=== PATIENT | female | born 1990 | race Native Hawaiian/Other Pacific Islander ===

== ENCOUNTER 2019-01-30 18:48 | Emergency (ER) | payer OTHER ==
--- NOTE | 2019-01-30 19:32 | ED ---
Complex/Multi-Sys Presentation - HPI Summary HPI Summary: A 28 y/o female presents to [facility] with a chief complaint of having a patient cough up bloody sputum at her face when giving the patient a CXR today. She notes that the spit was not in her eye and was more just generally in her face. There is no eye erythema noted. She says that the person has a Hx of MRSA. At triage the patient rated her pain as a 0/10 in severity. - History Of Current Complaint Chief Complaint: EDExposureBodyFluid Time Seen by Provider: 01/30/19 19:19 Hx Obtained From: Patient Onset/Duration: Sudden Onset, Resolved Timing: Intermittent, Lasting:, Seconds Severity Currently: Mild Severity Initially: Mild Location: Negative Character: Unable To Describe Aggravating Factor(s): nothing Alleviating Factor(s): nothing Associated Signs And Symptoms: Positive: Other - bloody sputum was coughed up from someone with a Hx of MRSA onto the patient's face. Negative: Fever - Allergies/Home Medications Allergies/Adverse Reactions: Allergies Allergy/AdvReac Type Severity Reaction Status Date / Time No Known Allergies Allergy Verified 01/30/19 18:56 Home Medications: Home Medications Etonogest/Eth.estradiol (Nf) [Nuvaring Vaginal Ring] 1 each INTRAUTERI MONTHLY 01/30/19 [History Confirmed 01/30/19] PMH/Surg Hx/FS Hx/Imm Hx Respiratory History: Reports: Hx Asthma - Sports induced Sensory History: Denies: Hx Deafness EENT History: Denies: Hx Deafness Infectious Disease History: No Infectious Disease History: Denies: Traveled Outside the [place] in Last 30 Days - Family History Known Family History: Negative: Blood Disorder - Social History Alcohol Use: None Substance Use Type: Reports: None Smoking Status (MU): Never Smoked Tobacco Have You Smoked in the Last Year: No Review of Systems Negative: Fever Negative: Erythema All Other Systems Reviewed And Are Negative: Yes Physical Exam - Summary Physical Exam Summary: Constitutional: Well-developed, Well-nourished, Alert. (-) Distressed Skin: Warm, Dry HENT: Normocephalic; Atraumatic Eyes: Symmetric, clean, no discharge, no conjunctival injection, no erythema, no pain when moving eye left to right Neck: Musculoskeletal ROM normal neck. (-) JVD, (-) Stridor, (-) Tracheal deviation Cardio: Rhythm regular, rate normal, Heart sounds normal; Intact distal pulses; The pedal pulses are 2+ and symmetric. Radial pulses are 2+ and symmetric. Pulmonary/Chest wall: Effort normal. (-) Respiratory distress, (-) Wheezes, (-) Rales Abd: Soft, (-) tenderness, (-) Distension, (-) Guarding, (-) Rebound Musculoskeletal: (-) Edema Neuro: Alert, Oriented x3 Psych: Mood and affect Normal Triage Information Reviewed: Yes Vital Signs On Initial Exam: Initial Vitals Temp Pulse Resp BP Pulse Ox 98.9 F 79 16 137/87 99 01/30/19 18:54 01/30/19 18:54 01/30/19 18:54 01/30/19 18:54 01/30/19 18:54 Vital Signs Reviewed: Yes Diagnostics - Vital Signs Vital Signs Temp Pulse Resp BP Pulse Ox 01/30/19 18:54 98.9 F 79 16 137/87 99 - Laboratory Lab Statement: Any lab studies that have been ordered have been reviewed, and results considered in the medical decision making process. Complex Multi-Symp Course/Dx Course Of Treatment: A 28 y/o female presents to [facility] with a chief complaint of having a patient cough up bloody sputum at her face when giving the patient a CXR today. The physical exam revealed that the eyes were symmetric, clean, no discharge, no conjunctival injection, no erythema, no pain when moving eye left to right. We will get HIV and hepatitis testing on the person who spit the bloody sputum. This person is unlikely to have HIV due to his old age, and dementia. Explained risks and benefits of post exposure prophylaxis and side affects of medications. The patient will be discharged with instructions for postexposure prophylaxis and follow up with her PCP. The patient is agreeable with this plan. - Diagnoses Provider Diagnoses: Exposure to blood or body fluid Discharge - Sign-Out/Discharge Documenting (check all that apply): Patient Departure - DC Patient Received Moderate/Deep Sedation with Procedure: No - Discharge Plan Condition: Good Disposition: HOME Patient Education Materials: Postexposure Prophylaxis (ED) Referrals: Brigitte Musa NP [Primary Care Provider] - - Billing Disposition and Condition Condition: GOOD Disposition: Home - Attestation Statements Document Initiated by Scribe: Yes Documenting Scribe: Levon Barrett Provider For Whom Scribe is Documenting (Include Credential): Alonzo Malone MD Scribe Attestation: I, Levon Barrett, scribed for Alonzo Malone MD on 01/31/19 at 0557. Scribe Documentation Reviewed: Yes Provider Attestation: The documentation as recorded by the scribe, Levon Barrett accurately reflects the service I personally performed and the decisions made by me, Alonzo Malone MD Status of Scribe Document: Viewed
[2019-01-30 20:42] VITALS: BP 139/95
== END 2019-01-30 20:39 | disposition home or self-care (01) ==
LOC: ED 18:48
DX: Z77.21 Contact with and (suspected) exposure to potentially hazardous body fluids (principal)
CPT/HCPCS: 99282